=== PATIENT | female | born 1995 | race Caucasian/White ===

== ENCOUNTER 2017-02-08 00:02 | Emergency (ER) | payer SELFPAY ==
[~2017-02-08] VITALS: Ht 170.2 cm; Wt 113.4 kg
[2017-02-08 00:27] VITALS: BP 147/63
[2017-02-08] MEDS ORDERED: PROAIR RESPICL90 MCG IH (00:33)
[2017-02-08] MEDS ORDERED: PRED50TA PO (00:33)
--- NOTE | 2017-02-08 00:33 | PHYS DOC ---
Past Medical History Past Medical History: Asthma, Other Additional Past Medical Histor: "LUPUS OF THE LUNG" Past Surgical History: Tonsillectomy Alcohol Use: Occasionally Drug Use: None Adult General Chief Complaint Chief Complaint: Congestion HPI HPI Patient is a 22 year old female with history of lupus who presents today with a productive cough and nasal congestion for 2 days. Patient denies any fever. She states she has history of asthma as well, she states she does not have an inhaler because she doesn't have money to buy the machine. She also states she is a smoker. Review of Systems Review of Systems Constitutional: Denies fever or chills [] Eyes: Denies change in visual acuity, redness, or eye pain [] HENT: nasal congestion Respiratory: cough Cardiovascular: No additional information not addressed in HPI [] GI: Denies abdominal pain, nausea, vomiting, bloody stools or diarrhea [] : Denies dysuria or hematuria [] Musculoskeletal: Denies back pain or joint pain [] Integument: Denies rash or skin lesions [] Neurologic: Denies headache, focal weakness or sensory changes [] Endocrine: Denies polyuria or polydipsia [] Allergies Allergies Allergies Coded Allergies Type Severity Reaction Last Updated Verified No Known Drug Allergies 08/25/14 No Physical Exam Physical Exam Constitutional: Well developed, well nourished, no acute distress, non-toxic appearance. [] HENT: Normocephalic, atraumatic, bilateral external ears normal, oropharynx moist, no oral exudates, nose normal. [] Eyes: PERRLA, EOMI, conjunctiva normal, no discharge. [] Neck: Normal range of motion, no tenderness, supple, no stridor. [] Cardiovascular:Heart rate regular rhythm, no murmur [] Lungs & Thorax: Bilateral breath sounds clear to auscultation [] Abdomen: Bowel sounds normal, soft, no tenderness, no masses, no pulsatile masses. [] Skin: Warm, dry, no erythema, no rash. [] Back: No tenderness, no CVA tenderness. [] Extremities: No tenderness, no cyanosis, no clubbing, ROM intact, no edema. [] Neurologic: Alert and oriented X 3, normal motor function, normal sensory function, no focal deficits noted. [] Psychologic: Affect normal, judgement normal, mood normal. [] EKG EKG [] Radiology/Procedures Radiology/Procedures [] Course & Med Decision Making Course & Med Decision Making Pertinent Labs and Imaging studies reviewed. (See chart for details) Patient is in the ED with symptoms consistent with an upper respiratory infection, bronchitis and asthma. She was given prednisone and DuoNeb treatment in the ED. She was discharged with albuterol inhaler as well as prednisone for 4 more days. Encouraged to consider smoking cessation. Follow-up with her own doctor next week. Dragon Disclaimer Dragon Disclaimer This electronic medical record was generated, in whole or in part, using a voice recognition dictation system. Departure Departure Impression: Primary Impression: Upper respiratory disease Additional Impressions: Asthma Acute bronchitis Smoking addiction Disposition: HOME, SELF-CARE Condition: STABLE Referrals: NO PCP (PCP) follow up with your doctor in one week Patient Instructions: Acute Bronchitis, Smoking Cessation, Upper Respiratory Infection, Adult, [id number] Additional Instructions: You were seen with symptoms consistent with an upper respiratory infection, asthma exacerbation and bronchitis. Consider smoking cessation. Use the prescribed medicines as ordered. Follow-up with your doctor next week. Scripts Albuterol Sulfate (Proair Respiclick)90 Mcg Aer.pow.[id number] Puff IH PRN Q6HRS PRN SHORTNESS OF BREATH #1 INHALER Prov:ROGER RODRÍGUEZ APRN 02/08/17 Prednisone 50 Mg Tablet1 Tab PO DAILY #4 TAB Prov:ROGER RODRÍGUEZ APRN 02/08/17 Problem Qualifiers Additional Impressions: Asthma Asthma severity: mild intermittent Asthma complication type: with acute exacerbation Qualified Code: J45.21 - Mild intermittent asthma with (acute) exacerbation Acute bronchitis Bronchitis organism: unspecified organism Qualified Code: J20.9 - Acute bronchitis, unspecified ROGER RODRÍGUEZ APRN Feb 08, 2017 00:33
[2017-02-08] MEDS ORDERED: IPRATRPIUM/ALBUTEROL 0.5/2.5MG 3 ML NEBU. NEB ONE (00:45)
[2017-02-08] MEDS ORDERED: predniSONE 20 MG TABLET PO ONE (00:45)
== END 2017-02-08 00:54 | disposition home or self-care (01) ==
LOC: ER 00:02
DX: J39.9 Disease of upper respiratory tract, unspecified (principal); J45.20 Mild intermittent asthma, uncomplicated; J20.9 Acute bronchitis, unspecified; F17.200 Nicotine dependence, unspecified, uncomplicated; L93.0 Discoid lupus erythematosus
CPT/HCPCS: 94640; 99283; J7512; J7620

== ENCOUNTER 2017-03-10 23:22 | Emergency (ER) | payer SELFPAY ==
[~2017-03-10] VITALS: Ht 170.2 cm; Wt 113.4 kg
[~2017-03-10 23:22] MED LIST: PRED50TA PO; PROAIR RESPICL90 MCG IH
[2017-03-10 23:54] LABS: BILIRUBIN,URINE NEGATIVE (NEG); GLUCOSE,URINE NEGATIVE (NEG); NITRITE,URINE NEGATIVE (NEG); PROTEIN,URINE NEGATIVE (NEG-TRACE); UROBILINOGEN,URINE 0.2 mg/dL (0.2 mg/dL)
[2017-03-11] LABS: BACTERIA,URINE FEW /HPF (0-FEW); SQUAMOUS EPITHELIAL CELL,UR MOD /LPF
--- NOTE | 2017-03-11 00:07 | PHYS DOC ---
Past Medical History Past Medical History: Asthma, Other Additional Past Medical Histor: "LUPUS OF THE LUNG" Past Surgical History: Tonsillectomy Alcohol Use: Occasionally Drug Use: None Adult General Chief Complaint Chief Complaint: VAGINAL PROBLEM HPI HPI Patient is a 22 year old female with history of asthma who presents today with STD concern. Patient states for the last couple days she has noted yellowish brownish vaginal discharge. Patient states she completed her menstrual cycle March 02, 2017 and started spotting a couple days ago. Patient is concerned about STDs and would like to be treated. Patient denies any urgency frequency or dysuria but states she has some suprapubic pain. Review of Systems Review of Systems Constitutional: Denies fever or chills [] Eyes: Denies change in visual acuity, redness, or eye pain [] HENT: Denies nasal congestion or sore throat [] Respiratory: Denies cough or shortness of breath [] Cardiovascular: No additional information not addressed in HPI [] GI: Suprapubic abdominal pain, vaginal discharge : See history of present illness Musculoskeletal: Denies back pain or joint pain [] Integument: Denies rash or skin lesions [] Neurologic: Denies headache, focal weakness or sensory changes [] Endocrine: Denies polyuria or polydipsia [] Current Medications Current Medications Current Medications Medications (Trade) Dose Ordered Sig/Akil Start Time Stop Time Status Last Admin Dose Admin Azithromycin (Zithromax) 1,000 mg 1X ONCE 03/11/17 00:15 03/11/17 00:16 DC 03/11/17 00:25 1,000 MG Ceftriaxone Sodium (Rocephin Im) 250 mg 1X ONCE 03/11/17 00:15 03/11/17 00:16 DC 03/11/17 00:25 250 MG Metronidazole (Flagyl) 2,000 mg 1X ONCE 03/11/17 00:15 03/11/17 00:16 DC 03/11/17 00:26 2,000 MG Allergies Allergies Allergies Coded Allergies Type Severity Reaction Last Updated Verified No Known Drug Allergies 08/25/14 No Physical Exam Physical Exam Constitutional: Well developed, well nourished, no acute distress, non-toxic appearance. [] HENT: Normocephalic, atraumatic, bilateral external ears normal, oropharynx moist, no oral exudates, nose normal. [] Eyes: PERRLA, EOMI, conjunctiva normal, no discharge. [] Neck: Normal range of motion, no tenderness, supple, no stridor. [] Cardiovascular:Heart rate regular rhythm, no murmur [] Lungs & Thorax: Bilateral breath sounds clear to auscultation [] Abdomen: Bowel sounds normal, soft, no tenderness, no masses, no pulsatile masses. [] Pelvic exam External pelvic appears normal. Cervix is closed, no CMT, no adnexal tenderness , small amount of brownish discharge consistent with spotting noted on exam. Skin: Warm, dry, no erythema, no rash. [] Back: No tenderness, no CVA tenderness. [] Extremities: No tenderness, no cyanosis, no clubbing, ROM intact, no edema. [] Neurologic: Alert and oriented X 3, normal motor function, normal sensory function, no focal deficits noted. [] Psychologic: Affect normal, judgement normal, mood normal. [] Current Patient Data Vital Signs Vital Signs Date Time Temp Pulse Resp B/P (MAP) Pulse Ox O2 Delivery O2 Flow Rate FiO2 03/10/17 23:37 99.0 85 18 96 Room Air 99.0 Lab Values Laboratory Tests Test 03/10/17 23:32 Urine Collection Type Unknown Urine Color Yellow Urine Clarity Clear Urine pH 6.0 Urine Specific [place] 1.015 Urine Protein Negative mg/dL (NEG-TRACE) Urine Glucose (UA) Negative mg/dL (NEG) Urine Ketones (Stick) Negative mg/dL (NEG) Urine Blood Small (NEG) Urine Nitrite Negative (NEG) Urine Bilirubin Negative (NEG) Urine Urobilinogen Dipstick 0.2 mg/dL (0.2 mg/dL) Urine Leukocyte Esterase Negative (NEG) Urine RBC 3-5 /HPF (0-2) Urine WBC 1-4 /HPF (0-4) Urine Squamous Epithelial Cells Mod /LPF Urine Bacteria Few /HPF (0-FEW) Microbiology 03/10/17 Wet Prep - Final, Complete EKG EKG [] Radiology/Procedures Radiology/Procedures [] Course & Med Decision Making Course & Med Decision Making Pertinent Labs and Imaging studies reviewed. (See chart for details) Patient is in the ED with complaints of vaginal discharge and concern for STDs. Negative urine hCG, she was given Rocephin and azithromycin and Flagyl. Swabs are obtained and sent to lab. Urine analysis is negative for infection. Wet prep negative. Provided STD education and follow-up information. Dragon Disclaimer Dragon Disclaimer This electronic medical record was generated, in whole or in part, using a voice recognition dictation system. Departure Departure Impression: Primary Impression: Concern about STD in female without diagnosis Additional Impression: Dysfunctional uterine bleeding Disposition: HOME, SELF-CARE Condition: STABLE Referrals: NO PCP (PCP) ARUN YATES Jr, MD Follow-up with the provided [facility] in one week if symptoms continue Patient Instructions: Uterine Bleeding, Dysfunctional, [id number] Additional Instructions: Your urine analysis is negative for infection, you will wet prep is negative for infection. You were treated prophylaxis in the ED for STDs. This does not mean you have an STD. We will contact you in 3-7 days and may to know if you tested positive for any STDs otherwise right now everything we did looks negative. Did discharge could be spotting from dysfunctional uterine bleeding which is hormonal at times. Follow-up with the provided [facility] in one week if symptoms continue. Problem Qualifiers ROGER RODRÍGUEZ EXTRACTIONS TECHNICIAN March 11, 2017 00:06
[2017-03-11] MEDS ORDERED: cefTRIAXone IM 250 MG VIAL IM ONE (00:15)
[2017-03-11] MEDS ORDERED: metroNIDAZOLE 500 MG TABLET PO ONE (00:15)
[2017-03-11] MEDS ORDERED: AZITHROMYCIN 250 MG TABLET. PO ONE (00:15)
[2017-03-11 00:50] VITALS: BP 130/61
== END 2017-03-11 00:55 | disposition home or self-care (01) ==
LOC: ER 23:22
DX: N93.8 Other specified abnormal uterine and vaginal bleeding (principal); J45.909 Unspecified asthma, uncomplicated
CPT/HCPCS: 81001; 84703; 87491; 87591; 96372; 99284; J0696; Q0111; Q0144; 81025

== ENCOUNTER 2017-11-27 16:36 | Emergency (ER) | payer SELFPAY ==
[2017-11-27 17:26] LABS: URINE HCG POC HCG NEGATIVE (Negative)
[2017-11-27] MEDS: IPRATRPIUM/ALBUTEROL 0.5/2.5MG 3 ML NEBU. NEB ×2 (18:26)
[2017-11-27 18:28] LABS: INFLUENZA A PATIENT NEGATIVE (NEGATIVE); INFLUENZA B PATIENT NEGATIVE (NEGATIVE); OBC FLU VALID
[2017-11-27] MEDS: predniSONE 10 MG TABLET PO ×2 (18:30)
== END 2017-11-27 19:40 | disposition home or self-care (01) ==
LOC: ER 16:36
DX: J45.41 Moderate persistent asthma with (acute) exacerbation (principal); M32.9 Systemic lupus erythematosus, unspecified
CPT/HCPCS: 71046; 81025; 87804; 87804-59; 94640; 99285-25; J7512; J7620

== ENCOUNTER 2019-05-24 17:43 | Emergency (ER) | payer SELFPAY ==
[~2019-05-24] VITALS: Ht 170.2 cm; Wt 95.3 kg
[~2019-05-24 17:43] MED LIST changes: +AZIT250T PO; +PRED-220 PO; +VENTOLIN HFA18 GM INH
[2019-05-24 17:58] VITALS: BP 126/65
[2019-05-24] MEDS ORDERED: ALBUTEROL SULFATE 2.5 MG/3 ML NEBU. NEB ONE (18:15)
[2019-05-24] MEDS ORDERED: methylPREDNISolone SOD SUCC PF 125 MG/2 ML VIAL. IM ONE (18:15)
[2019-05-24] MEDS ORDERED: AZIT250T6 PO (19:24)
[2019-05-24] MEDS ORDERED: PRED50TA PO (19:24)
[2019-05-24] MEDS ORDERED: ALBU2.5V8 INH (19:25)
--- NOTE | 2019-05-24 19:25 | PHYS DOC ---
Past Medical History Past Medical History: Asthma, Other Additional Past Medical Histor: "LUPUS OF THE LUNG" (MARGARITO CHRISTIANSEN APRN) Past Surgical History: Tonsillectomy (MARGARITO CHRISTIANSEN APRN) Alcohol Use: Occasionally Drug Use: None (MARGARITO CHRISTIANSEN APRN) Adult General Chief Complaint Chief Complaint: SHORTNESS OF BREATH HPI HPI Patient is a 24 year old female, accompanied by her , who presents to the emergency department with complaints of a productive cough with green sputum and shortness of breath for the last 2 weeks. Patient states she has a history of respiratory lupus, and asthma and she has been out of her albuterol inhaler for several weeks. She typically smokes a pack of cigarettes a day. She states she has had an intermittent fever up to 99.6 with the cough. She denies any complaints of pain at this time. ROS Patient denies any ear pain, sore throat, nausea, vomiting, diarrhea, abdominal pain, dysuria, or back pain. She states she has had some nasal congestion, and a sinus headache. All other ROS is neg unless otherwise noted in HPI. (MARGARITO CHRISTIANSEN APRN) Review of Systems Review of Systems See Above (MARGARITO CHRISTIANSEN APRN) Current Medications Current Medications Current Medications Medications (Trade) Dose Ordered Sig/Akil Start Time Stop Time Status Last Admin Dose Admin Albuterol Sulfate (Ventolin Neb Soln) 2.5 mg 1X ONCE 05/24/19 18:15 05/24/19 18:16 DC 05/24/19 18:33 2.5 MG Methylprednisolone Sodium Succinate (SOLU-Medrol 125MG VIAL) 125 mg 1X ONCE 05/24/19 18:15 05/24/19 18:16 DC 05/24/19 18:45 125 MG (AMIRAH HAMPTON DO) Allergies Allergies Allergies Coded Allergies Type Severity Reaction Last Updated Verified No Known Drug Allergies 08/25/14 No (AMIRAH HAMPTON DO) Physical Exam Physical Exam See Above Constitutional: Well developed, well nourished, no acute distress, non-toxic appearance, obese. [] HENT: Normocephalic, atraumatic, bilateral external ears normal, bilateral TMs normal, cobblestone appearance of posterior pharynx, oropharynx moist, no oral exudates, nose normal. [] Eyes: PERRLA, EOMI, conjunctiva normal, no discharge. [] Neck: Normal range of motion, no tenderness, supple, no stridor. [] Cardiovascular:Heart rate regular rhythm, no murmur [] Lungs & Thorax: Bilateral breath sounds coarse with inspiratory and expiratory wheezes throughout all pimentel, no retractions, patient speaking in full sentences Skin: Warm, dry, no erythema, no rash. [] Extremities: No cyanosis, no clubbing, ROM intact, no edema. [] Neurologic: Alert and oriented X 3, no focal deficits noted. [] Psychologic: Affect normal, judgement normal, mood normal. [] (MARGARITO CHRISTIANSEN APRN) Current Patient Data Vital Signs Vital Signs Date Time Temp Pulse Resp B/P (MAP) Pulse Ox O2 Delivery O2 Flow Rate FiO2 05/24/19 18:34 99 Room Air 05/24/19 17:58 98.4 92 18 126/65 (85) 98.4 (AMIRAH HAMPTON DO) Lab Values Laboratory Tests Test 05/24/19 18:16 POC Urine HCG, Qualitative Hcg negative (Negative) (AMIRAH HAMPTON DO) EKG EKG [] (MARGARITO CHRISTIANSEN APRN) Radiology/Procedures Radiology/Procedures Chest x-ray negative for any acute findings read by Dr. Hampton Patient was given an albuterol treatment in the emergency department, she reported feeling better after the treatment, there were no wheezes after the breathing treatment, her lung sounds remained course in all pimentel.[] (MARGARITO CHRISTIANSEN APRN) Radiology/Procedures PROCEDURE: CHEST PA & LATERAL CHEST PA LATERAL History: Shortness of breath, cough Comparison: 11/27/2017 two-view chest x-ray exam. Findings: The cardiomediastinal silhouette is normal. Pulmonary vasculature is normal. The lungs are clear. No pleural effusion or pneumothorax is seen. There is no acute bone abnormality. Minimal lingular linear atelectasis is present. Minimal right basilar atelectasis noted. Subtle small opacity at the right lower lung field on the frontal projection does not have a corresponding finding definitely noted on the lateral view. IMPRESSION: Minimal bibasilar atelectasis. Subtle opacity overlying the right lower lung field which may represent early infiltrate. Interval follow-up two-view chest x-ray exam to assess resolution should be considered. Electronically signed by: Eriberto Jones MD (05/25/2019 7:47 AM) [facility] (AMIRAH HAMPTON DO) Course & Med Decision Making Course & Med Decision Making Pertinent Labs and Imaging studies reviewed. (See chart for details) dx: Wheezy bronchitis. Patient is a 24-year-old female who presents to emergency room with complaints of a productive cough and shortness of breath for the last 2 weeks. She was given 125 mg of Solu-Medrol IM and a breathing treatment in the emergency department her lung sounds improved however remained course. We will prescribe a Z-Luis Alberto, Pro Air inhaler, and prednisone. Patient encouraged to stop smoking. Also encouraged patient to avoid exposure to airway irritants such as smoke, perfumes, animal dander, and dust. Follow-up with her primary care doctor if symptoms persist, return to the ER symptoms worsen. Patient verbalized an understanding of home care, medications, follow-up, and return to ED instructions and was in agreement with the plan of care. [] (MARGARITO CHRISTIANSEN APRN) Dragon Disclaimer Dragon Disclaimer This electronic medical record was generated, in whole or in part, using a voice recognition dictation system. (MARGARITO CHRISTIANSEN APRN) Departure Departure Impression: Primary Impression: Acute wheezy bronchitis Disposition: 01 HOME, SELF-CARE Condition: STABLE Referrals: NO PCP (PCP) Patient Instructions: Acute Bronchitis, [id number] Additional Instructions: Fill prescriptions and use as directed. Stop smoking and avoid exposure to airway irritants such as smoke, perfumes, animal dander, and dust. Follow-up with your primary care doctor if symptoms persist, return to the ER if symptoms worsen. Scripts Albuterol Sulfate (PROAIR HFA INHALER) 8.5 Gm Hfa.aer.ad 2 PUFF INH PRN Q6HRS PRN for SHORTNESS OF BREATH, #1 INHALER 1 Refill Prov: MARGARITO CHRISTIANSEN APRN 05/24/19 Prednisone (PREDNISONE) 50 Mg Tablet 1 TAB PO DAILY, #5 TAB 0 Refills begin taking on 05/25/19 Prov: MARGARITO CHRISTIANSEN APRN 05/24/19 Azithromycin (AZITHROMYCIN TABLET) 250 Mg Tablet 1 PKG PO UD, #6 TAB 0 Refills Prov: MARGARITO CHRISTIANSEN MANAGER PROPERTY 05/24/19 Attending Signature Attending Signature I have reviewed the PA/WAGON DRILL OPERATOR's note and plan of care. I was available for consultation as needed during the patient's visit in the emergency department. I agree with the clinical impression, plan, and disposition. (AMIRAH HAMPTON DO) MARGARITO CHRISTIANSEN APRN May 24, 2019 19:25 AMIRAH HAMPTON DO May 26, 2019 08:14
--- NOTE | 2019-05-25 07:50 | RAD ---
CHEST PA LATERAL History: Shortness of breath, cough Comparison: 11/27/2017 two-view chest x-ray exam. Findings: The cardiomediastinal silhouette is normal. Pulmonary vasculature is normal. The lungs are clear. No pleural effusion or pneumothorax is seen. There is no acute bone abnormality. Minimal lingular linear atelectasis is present. Minimal right basilar atelectasis noted. Subtle small opacity at the right lower lung field on the frontal projection does not have a corresponding finding definitely noted on the lateral view. IMPRESSION: Minimal bibasilar atelectasis. Subtle opacity overlying the right lower lung field which may represent early infiltrate. Interval follow-up two-view chest x-ray exam to assess resolution should be considered. Electronically signed by: Eriberto Jones MD (05/25/2019 7:47 AM) [facility]
== END 2019-05-24 19:31 | disposition home or self-care (01) ==
LOC: ER 17:43
DX: J20.9 Acute bronchitis, unspecified (principal); R51 Headache; J45.909 Unspecified asthma, uncomplicated; Z90.89 Acquired absence of other organs; F17.210 Nicotine dependence, cigarettes, uncomplicated
CPT/HCPCS: 71046; 81025; 94640; 96372; 99284; J2930; J7613